=== PATIENT | male | born 1980 | race Two or more races ===

== ENCOUNTER 2023-06-30 21:39 | Emergency (ER) | payer OTHER, SELFPAY ==
[2023-06-30 21:40] VITALS: BP 144/92
[2023-06-30 22:01] VITALS: BMI 26.0
[2023-06-30 22:07] LABS: % Basophils 1.1 % (0-2); % Eosinophils 5.9 % (0-6); % Immature Granulocytes 0.5 % (0-0.5); % Lymphocytes 16.4 % (20.5-51.1); % Monocytes 4.3 % (1.7-9.3); % Neutrophils 71.8 % (42.2-75.2); Absolute Basophils 0.1 10^3/uL (0-0.2); Absolute Eosinophils 0.8 10^3/uL (0-0.7); Absolute Immature Granulocytes 0.1 10^3/uL (0-0.05); Absolute Lymphocytes 2.1 10^3/uL (1.2-3.4); Absolute Monocytes 0.5 10^3/uL (0.1-0.6); Absolute Neutrophils 9.1 10^3/uL (1.4-6.5); Hematocrit 40.8 % (39.0-52.0); Hemoglobin 14.1 g/dL (13.0-18.0); Mean Corp Hgb Conc. 34.6 g/dL (33.0-37.0); Mean Corpuscular Hgb 29.9 pg (27.0-31.0); Mean Corpuscular Volume 86.6 fL (80.0-94.0); Nucleated Red Blood Cells % 0 % (-); Platelet Count 290 10^3/uL (130-400); Red Blood Cell Count 4.71 10^6/uL (4.70-6.10); Red Cell Dist. Width 13.3 % (11.5-14.5); White Blood Cell Count 12.7 10^3/uL (4.8-10.8)
[2023-06-30] MEDS: NSS 500 IV (22:21)
[2023-06-30] MEDS: ZOFRAN 4 MG IV (22:21)
[2023-06-30] MEDS: PEPCID 20 MG IV (22:21)
--- NOTE | 2023-06-30 22:21 | ED.GENMED ---
History of Present Illness
General
Chief Complaint: Abdominal Pain
Source: patient
Exam Limitations: none
Time Seen by Provider: 06/30/23 21:50
Nursing documentation reviewed up to this point in time: agreed with
Travel History
Have you had any contact with someone who has COVID-19?: No
Do you have any symptoms of coronavirus? Fever > 100 degrees, chills, cough, shortness of breath, sore throat, loss of taste or smell, muscle aches, or headache?: No
History of Present Illness
History of Present Illness:
The patient is a 43-year-old male past medical history of spina bifida presenting to the emergency department today with concerns of 3 weeks of intermittent upper abdominal pain seems to be worse with some positions and potentially sometimes after
meals did have an episode of vomiting today claims that some intermittent constipation diarrhea over the past 2 weeks as well. Denies any chest pain shortness of breath fevers. Denies any history of surgeries does not drink alcohol daily does
consume small amount of marijuana daily denies large amount of use on a daily basis.
Review of Systems
Review of Systems
Allergies reviewed?: Yes
All Other Systems: ROS reviewed and negative except as documented in HPI and ROS
Phy Exam
Physical Exam
Physical Exam:
GENERAL: Alert , in no apparent distress
EYE: pupils equal and reactive
NECK: Supple, no significant adenopathy.
ENT: o/p clr, mmm.
CARDIAC: Regular rate and rhythm .
LUNGS: Clear breath sounds bilaterally, no acute respiratory distress, no wheezes/rales/rhonchi
ABDOMEN: Mild abdominal discomfort diffusely.
NEUROLOGICAL: Alert and oriented, no focal neuro deficits
SKIN: Warm and dry, skin intact.
MUSCULOSKELETAL: No edema, well perfused.
PSYCH: Normal and appropriate interaction.
Course
Orders/Labs/Results
Orders:
Orders
06/30/23 21:47
Electrocardiogram (*1) Urgent
Reason for Study: Abdominal Pain
EKG- Treatment ONCE
06/30/23 22:01
CMP [Comprehensive Metabolic Panel] Urgent
Complete Blood Count/With Diff Urgent
Lipase Urgent
Troponin I Urgent
06/30/23 22:08
CT Abd/Pel (IV only)-DH only Urgent
Comment:
Reason For Exam: diffuse abd pain
06/30/23 22:11
0.9% Sodium Chloride 500 ml [Nss] 500 ml IV BOLUS
Famotidine [Pepcid] 20 mg IV NOW STA
Ondansetron Injectable [Zofran] 4 mg IV NOW STA
Abnormal Lab Results
06/30/23
22:01
WBC 12.7 H 10^3/uL
(4.8-10.8)
Abs Immat Gran (auto) 0.1 H 10^3/uL
(0-0.05)
Absolute Neuts (auto) 9.1 H 10^3/uL
(1.4-6.5)
Absolute Eos (auto) 0.8 H 10^3/uL
(0-0.7)
Lymphocytes % 16.4 L %
(20.5-51.1)
Glucose 111 H mg/dl
(70-99)
06/30/23 22:01
06/30/23 22:01
Vital Signs
Initial and Last Documented VS:
Initial Vital Signs
Temp Pulse Resp BP Pulse Ox
98 F 86 22 144/92 100
06/30/23 21:40 06/30/23 21:40 06/30/23 21:40 06/30/23 21:40 06/30/23 21:40
Last Documented Vital Signs
Temp Pulse Resp BP Pulse Ox
98 F 54 22 129/85 99
06/30/23 21:40 06/30/23 23:45 06/30/23 23:45 06/30/23 23:43 06/30/23 23:45
MDM/Problems Addressed
MDM/Problems Addressed:
41-year-old male presenting to the emergency department today with concerns of abdominal discomfort seems to be intermittent sometimes with different movements and positioning. Sometimes after meals as well. Minimal discomfort throughout abdominal
examination here no specific focal pain. Vital signs normal upon arrival here. Blood work showing white count o 12.7. Other labs unremarkable CT scan without emergent findings other than some inflammation of the upper GI tract potentially
consistent with gastroenteritis. Patient in no distress throughout ER stay. Stable for outpatient management return precautions given. He does have scheduled follow-up with GI in 3 weeks.
*Critical Care Note
Total Time (30-74mins, 75-104mins- exclusive of procedures): Not Applicable
ED Attending Note
-
Portions of this chart may have been created with voice recognition software.� Occasional wrong word or��sound alike� substitutions may have occurred due to the inherent limitations of voice recognition software.
Discharge Plan
Departure
Patient Disposition: Home (Routine Discharge)
Date of Disposition: 07/01/23
Time of Disposition: 00:10
Patient with high blood pressure during this ER visit?: No
Condition: Good
Covid-19: Not Applicable
Discharge Problem:
Abdominal pain
Instructions: Abdominal Pain
Prescriptions:
New
pantoprazole [Protonix] 20 mg tablet,delayed release (DR/EC)
20 mg PO DAILY 21 Days Qty: 21 0RF
Referrals:
NONE,* [Family Provider] -
Activity Restrictions/Additional Instructions:
You came to the emergency department today with concerns of abdominal pain. Here you had a reassuring evaluation with reassuring labs and CT scan. There was some inflammation to the upper GI tract. Please follow closely with GI and take Protonix
daily. Return to the emergency department any worsening, new or concerning symptoms.
Interventions
Interventions:
*Risk Screen - Suicide Last Done: 06/30/23 21:40
*General Assessment Last Done: 06/30/23 22:01
*Neglect/Abuse Screening Last Done: 06/30/23 21:40
*ED COVID-19 Vaccine History Last Done: 06/30/23 22:01
L[facility]-Plmgle-Suglaktzto Assessment Last Done: 06/30/23 22:05
[2023-06-30 22:25] LABS: ALT (SGPT) 12 U/L (0-50); AST (SGOT) 18 U/L (17-59); Albumin 4.5 g/dl (3.5-5.0); Alkaline Phosphatase 69 U/L (38-126); Blood Urea Nitrogen 14 mg/dl (9-20); Carbon Dioxide 28 mmol/L (22-30); Chloride 102 mmol/L (98-107); Estimated Creatinine Clearance 110 ml/min; Glucose 111 mg/dl (70-99); Sodium 137 mmol/L (135-145); Total Bilirubin 0.6 mg/dl (0.2-1.3); eGFR > 60.00
[2023-06-30 22:26] LABS: Lipase 124 U/L (23-300)
[2023-06-30 22:31] LABS: Troponin I < 0.012 ng/ml
[2023-06-30 23:43] VITALS: BP 129/85
[2023-07-01 00:17] VITALS: BP 131/84
== END 2023-07-01 00:19 | disposition home or self-care (01) ==
LOC: EMR 21:39
PROVIDERS: Emergency Medicine; EMERGENCY PHYSICIAN Emergency Medicine
DX: R10.10 Upper abdominal pain, unspecified (principal); Q05.9 Spina bifida, unspecified
CPT/HCPCS: 99285; 96374; 96375; 74177; 80053; 83690; 84484; 85025; 93005; Q9967